=== PATIENT | male | born 1975 | race Two or more races ===

== ENCOUNTER 2021-12-26 21:18 | Emergency (ER) | payer SELFPAY ==
[2021-12-26] MEDS ORDERED: Lidocaine 1% 10 ML MDV ONE (21:38)
[2021-12-26] MEDS ORDERED: Diphtheria,Pertussis(Acell),Tetanus Vaccine 0.5 ML Syringe IM ONE (21:41)
[2021-12-26] MEDS ORDERED: Lidocaine 1% 10 ML MDV INJECT STA (21:41)
[2021-12-26] MEDS ORDERED: Cephalexin 500 MG Cap PO ONE (21:58)
== END 2021-12-26 21:33 | disposition home or self-care (01) ==
LOC: JD.ED 21:18
DX: S61.210A Laceration without foreign body of right index finger without damage to nail, initial encounter (principal); I10 Essential (primary) hypertension; E11.9 Type 2 diabetes mellitus without complications; Z23 Encounter for immunization; W26.0XXA Contact with knife, initial encounter
CPT/HCPCS: 12002; 90471; 90715; 99282; A9270; 99283